=== PATIENT | female | born 2000 | race Caucasian/White ===

== ENCOUNTER 2022-11-11 17:03 | Emergency (ER) | payer MEDICAID ==
[2022-11-11] MEDS ORDERED: NS IV 1000 ML 1,000 ML IV STA (17:17)
[2022-11-11] MEDS ORDERED: ONDANSETRON 4 MG/2 ML (SDV) Z0FRAN IVP STA (17:17)
[2022-11-11] MEDS ORDERED: diphenhydrAMINE 50 MG/ML INJ (BENADRYL) IVP STA (17:17)
[2022-11-11] MEDS ORDERED: KETOROLAC 30 MG/ML VIAL IVP STA (17:17)
--- NOTE | 2022-11-11 17:20 | ED Headache ---
General Chief Complaint: Head/Cervical Problems Stated Complaint: VOMITTING Nursing Triage Note: PT REPORTS A HEADACHE FOR 8 DAYS AND THIS AM SHE STARTED VOMITING AND CANT KEEP ANYTHING DOWN. Source: patient History of Present Illness Date Seen by Provider: Nov 11, 2022 Time Seen by Provider: 17:10 Initial Comments 22-year-old female presenting with complaints of right-sided headache for the last 8 days. She denies any head trauma or injury. There has not been any fever, chills, light sensitivity, sore throat, chest pain, cough, abdominal pain. She states her last menstrual cycle was about 1 month ago. She does have some minor headaches in the past but they usually resolve on their own within a few hours. This is the first time she has had a severe headache on the right side lasting 8 days. Since around noon she has had nausea and vomiting associated with the headache. She has tried Tylenol and ibuprofen but has not taken anything since early this morning. She does not take any chronic medications and denies any chronic medical conditions. The headache is worse when she is vomiting otherwise nothing makes it better or worse Timing/Duration: increasing (over the last 8 days) Severity/Quality: severe Location: other (right side of head) Prior Headaches/Recent Trauma: no recent headache/trauma Modifying Factors: worse with movement Associated Symptoms: No confusion, No fatigue, No facial pain, No fever/chills, No flushing, No loss of consciousness; nausea/vomiting; No nasal congestion, No nasal drainage, No numbness in legs/feet, No rash, No seizures, No sinus infection, No stiff neck, No vision changes, No weakness Allergies and Home Medications Allergies Coded Allergies: No Known Drug Allergies (Unverified , 11/11/22) Patient Home Medication List Home Medication List Reviewed: Yes Review of Systems Review of Systems Constitutional: No chills, No dizziness, No fever Eyes: Denies Blurred Vision, Denies Photophobia, Denies Tunnel Vision, Denies Vision Changes Ears, Nose, Mouth, Throat: denies ear pain, denies ear discharge, denies nose pain, denies nose discharge, denies epistaxis Respiratory: No cough, No short of breath Cardiovascular: No chest pain Gastrointestinal: No abdominal pain, No diarrhea; nausea, vomiting Genitourinary: No dysuria Musculoskeletal: no symptoms reported Skin: No rash Psychiatric/Neurological: Headache (right sided for last 8 days and ) Past Rxosath-Vwibxl-Gmbssn Hx Patient Social History Tobacco Use?: No Use of E-Cig and/or Vaping dev: No Substance use?: No Alcohol Use?: No Pt feels they are or have been: No Past Medical History Surgeries: No Physical Exam Vital Signs Vital Signs - First Documented 11/11/22 17:07 Temp 36.2 Pulse 92 Resp 18 B/P (MAP) 113/82 (92) Pulse Ox 100 O2 Delivery Room Air Capillary Refill : Less Than 3 Seconds Height, Weight, BMI Height: '" Weight: lbs. oz. kg; BMI Method: General Appearance: WD/WN, no apparent distress HEENT: PERRL/EOMI, normal ENT inspection, TMs normal, pharynx normal; No photophobia; other (Negative botello sign, negative raccoon sign, no CSF otorrhea, no CSF rhinorrhea, no hemotympanum.) Neck: non-tender, full range of motion, supple, normal inspection Cardiovascular: normal peripheral pulses, regular rate, rhythm Respiratory: chest non-tender, lungs clear, normal breath sounds Gastrointestinal: normal bowel sounds, non tender, soft, no pulsatile mass Extremities: normal range of motion, non-tender, normal capillary refill Psychiatric: alert, oriented x 3 Crainal Nerves: normal hearing, normal speech, PERRL Coordination/Gait: normal gait Motor/Sensory: no motor deficit, no sensory deficit Skin: normal color, warm/dry Progress/Results/Core Measures Results/Orders Lab Results Laboratory Tests Test 11/11/22 17:24 Range/Units White Blood Count 10.6 4.3-11.0 10^3/uL Red Blood Count 3.93 3.80-5.11 10^6/uL Hemoglobin 11.5 11.5-16.0 g/dL Hematocrit 34 L 35-52 % Mean Corpuscular Volume 86 80-99 fL Mean Corpuscular Hemoglobin 29 25-34 pg Mean Corpuscular Hemoglobin Concent 34 32-36 g/dL Red Cell Distribution Width 12.8 10.0-14.5 % Platelet Count 232 130-400 10^3/uL Mean Platelet Volume 10.3 9.0-12.2 fL Immature Granulocyte % (Auto) 0 % Neutrophils (%) (Auto) 93 H 42-75 % Lymphocytes (%) (Auto) 5 L 12-44 % Monocytes (%) (Auto) 2 0-12 % Eosinophils (%) (Auto) 0 0-10 % Basophils (%) (Auto) 0 0-10 % Neutrophils # (Auto) 9.8 H 1.8-7.8 10^3/uL Lymphocytes # (Auto) 0.5 L 1.0-4.0 10^3/uL Monocytes # (Auto) 0.2 0.0-1.0 10^3/uL Eosinophils # (Auto) 0.0 0.0-0.3 10^3/uL Basophils # (Auto) 0.0 0.0-0.1 10^3/uL Immature Granulocyte # (Auto) 0.0 0.0-0.1 10^3/uL Neutrophils % (Manual) 93 % Lymphocytes % (Manual) 2 % Monocytes % (Manual) 1 % Eosinophils % (Manual) 0 % Basophils % (Manual) 2 % Band Neutrophils 2 % Prothrombin Time 13.6 12.2-14.7 SEC INR Comment 1.0 0.8-1.4 Activated Partial Thromboplast Time 24 24-35 SEC Sodium Level 137 135-145 MMOL/L Potassium Level 4.1 3.6-5.0 MMOL/L Chloride Level 105 98-107 MMOL/L Carbon Dioxide Level 22 21-32 MMOL/L Anion Gap 10 5-14 MMOL/L Blood Urea Nitrogen 13 7-18 MG/DL Creatinine 0.59 L 0.60-1.30 MG/DL Estimat Glomerular Filtration Rate 132 BUN/Creatinine Ratio 22 Glucose Level 140 H 70-105 MG/DL Calcium Level 9.2 8.5-10.1 MG/DL Corrected Calcium 8.9 8.5-10.1 MG/DL Total Bilirubin 0.5 0.1-1.0 MG/DL Aspartate Amino Transf (AST/SGOT) 15 5-34 U/L Alanine Aminotransferase (ALT/SGPT) 9 0-55 U/L Alkaline Phosphatase 63 40-136 U/L Total Protein 7.6 6.4-8.2 GM/DL Albumin 4.4 3.2-4.5 GM/DL Lipase 16 8-78 U/L My Orders Orders - PRINCESS FRANCO MD Comprehensive Metabolic Panel (11/11/22 17:17) Lipase (11/11/22 17:17) Ed Iv/Invasive Line Start (11/11/22 17:17) Cbc With Automated Diff (11/11/22 17:17) Urine Bedside (11/11/22 17:17) Ct Head/Cervical Spine Wo (11/11/22 17:17) Ns Iv 1000 Ml (Sodium Chloride 0.9%) (11/11/22 17:17) Ketorolac Injection (Toradol Injection) (11/11/22 17:17) Diphenhydramine Injection (Benadryl Inje (11/11/22 17:17) Ondansetron Injection (Zofran Injectio (11/11/22 17:17) Manual Differential (11/11/22 17:24) Partial Thromboplastin Time (11/11/22 17:56) Protime With Inr (11/11/22 17:56) Dexamethasone Injection (Decadron Inje (11/11/22 18:51) Vital Signs/I&O 11/11/22 17:07 Temp 36.2 Pulse 92 Resp 18 B/P (MAP) 113/82 (92) Pulse Ox 100 O2 Delivery Room Air Blood Pressure Mean: 92 Progress Progress Note #1: Progress Note Order basic labs including CBC and chemistry with coags. CT scan of the head to evaluate for severe right-sided headache with nausea and vomiting since she does not have a history of headaches or migraines. Order normal saline 1 L IV fluid bolus for hydration, Toradol 30 mg IV for pain, Zofran 4 mg IV for nausea and vomiting, Benadryl 25 mg IV for possible migraine headache. Progress Note #2: Time: 18:00 Progress Note Discussed with radiologist that the CT scan shows an area of intraparenchymal hemorrhage on the right occipital lobe. There is surrounding vasogenic edema. Concern for hemorrhagic mass. CBC and chemistry with coags are not showing any acute significant abnormality. Patient reports that her headache is down to a 2 or 3 out of 10 and the nausea is well controlled. She denies any new symptoms. Counseled that we would need to get her transferred to a hospital that would have neurosurgery and MRI to further evaluate and treat this area of bleeding. As [facility] is on diversion with no beds available the next closest hospitals with neurosurgery will be in [place]. Will contact [facility] about possible transfer. Progress Note #3: Time: 19:06 Progress Note TARA Mendez, from [facility] called and Dr. Mo is the accepting physician for the patient. She will call back with room assignment but given a ghost bed to be able to start facilitating transfer. Although she has been stable she is at risk of worsening condition or compromise with the intraparenchymal hemorrhage in Right occipital lobe so will have air ambulance transport her for sake of time and safety. Diagnostic Imaging Diagonstic Imaging: CT Plain Films/CT/US/NM/MRI: c-spine, head Comments NAME: FLORECITA [facility] REC#: [id number] PT STATUS: REG ER : 2000 PHYSICIAN: PRINCESS RFANCO MD ADMIT DATE: 11/11/22/ER FS Draft Date of Exam:11/11/22 CT HEAD/CERVICAL SPINE WO EXAMINATION: CT head and CT cervical spine without contrast. TECHNIQUE: Multiple contiguous axial images were obtained through the brain and cervical spine without the use of intravenous contrast. Sagittal and coronal reformations through the cervical spine were then performed. All CT scans use one or more of the following dose optimizing techniques: automated exposure control, MA and/or KvP adjustment based on patient size and exam type or iterative reconstruction. HISTORY: Headache and neck pain, nausea and vomiting. COMPARISON: None available. FINDINGS: There is an area of intraparenchymal hemorrhage in the right occipital lobe. There is surrounding vasogenic edema. The hematoma measures 2.6 x 1.6 cm. There is mass effect on the adjacent sulci but no midline shift. The ventricles are normal in size and configuration. Basilar cisterns are patent. There are no intra-axial or extra-axial fluid collection. There is no intracranial hemorrhage. The orbits are normal. Paranasal sinuses are normal. Mastoid air cells are clear. No soft tissue abnormality is seen. No osseus lesions or fractures are seen. The alignment of the cervical spine is normal. No fracture is seen. Vertebral body heights are normal. The craniocervical junction is normal. There is no degenerative disease in the cervical spine. There is no spinal canal stenosis. No soft tissue abnormality is seen in the neck. Limited views of the superior thorax are normal. IMPRESSION: 1. Intraparenchymal hemorrhage in the right occipital lobe measuring 2.6 x 1.6 cm. There is surrounding vasogenic edema and mass effect on the adjacent sulci but no midline shift. Differential includes a hemorrhagic mass. When patient condition permits MRI of the brain with and without contrast is recommended. 2. No cervical spine fracture. Critical findings called to Dr. Franco by Dr. Enriquez on 11/11/2022 at 6:00 PM. Dictated on workstation # [id number] Dict: 11/11/22 [id number] Trans: 11/11/22 [id number] [facility] [id number] Interpreted by: ROMEO ENRIQUEZ MD Electronically signed by: Reviewed: Discussed w/Radiologist (at 1800) Critical Care Note Critical Care Total Time (minutes) 45 minutes Progress 45 minutes of critical care time was spent with the patient. Time was excluding separately billable procedures. Time was spent obtaining history from patient and family, ordering labs and reviewing results, ordering interventions and reviewing response, reviewing radiology imaging, discussion with consultants, documentation in the chart. Patient was at risk of neurologic failure and compromised due to intraparenchymal hemorrhage. Departure Impression Primary Impression: Spontaneous intraparenchymal intracranial hemorrhage, acute Disposition: 02 XFER [facility] Condition: Critical Transfer Transfer Reason: Exceeds level of care (Requires neurosurgery and MRI) Departure-Patient Inst. Referrals: NO,LOCAL PHYSICIAN (PCP/Family) Primary Care Physician PRINCESS FRANCO MD Nov 11, 2022 17:20
[2022-11-11 17:29] LABS: BASOPHILS % (AUTO) 0 % (0-10); EOSINOPHILS % (AUTO) 0 % (0-10); HEMATOCRIT 34 % (35-52); HEMOGLOBIN 11.5 g/dL (11.5-16.0); LYMPHOCYTES # (AUTO) 0.5 10^3/uL (1.0-4.0); LYMPHOCYTES % (AUTO) 5 % (12-44); MEAN CORPUSCULAR HEMOGLOBIN 29 pg (25-34); MEAN CORPUSCULAR HGB CONC 34 g/dL (32-36); MEAN CORPUSCULAR VOLUME 86 fL (80-99); MEAN PLATELET VOLUME 10.3 fL (9.0-12.2); MONOCYTES # (AUTO) 0.2 10^3/uL (0.0-1.0); MONOCYTES % (AUTO) 2 % (0-12); NEUTROPHILS # (AUTO) 9.8 10^3/uL (1.8-7.8); NEUTROPHILS % (AUTO) 93 % (42-75); PLATELET COUNT 232 10^3/uL (130-400); WHITE BLOOD COUNT 10.6 10^3/uL (4.3-11.0)
[2022-11-11 18:01] LABS: BILIRUBIN,TOTAL 0.5 MG/DL (0.1-1.0); CALCIUM 9.2 MG/DL (8.5-10.1); CREATININE SERUM 0.59 MG/DL (0.60-1.30); POTASSIUM 4.1 MMOL/L (3.6-5.0)
[2022-11-11 18:02] LABS: ALBUMIN 4.4 GM/DL (3.2-4.5); TOTAL PROTEIN 7.6 GM/DL (6.4-8.2)
--- NOTE | 2022-11-11 18:10 | Diagnostic Imaging Report ---
EXAMINATION: CT head and CT cervical spine without contrast. TECHNIQUE: Multiple contiguous axial images were obtained through the brain and cervical spine without the use of intravenous contrast. Sagittal and coronal reformations through the cervical spine were then performed. All CT scans use one or more of the following dose optimizing techniques: automated exposure control, MA and/or KvP adjustment based on patient size and exam type or iterative reconstruction. HISTORY: Headache and neck pain, nausea and vomiting. COMPARISON: None available. FINDINGS: There is an area of intraparenchymal hemorrhage in the right occipital lobe. There is surrounding vasogenic edema. The hematoma measures 2.6 x 1.6 cm. There is mass effect on the adjacent sulci but no midline shift. The ventricles are normal in size and configuration. Basilar cisterns are patent. There are no intra-axial or extra-axial fluid collection. There is no intracranial hemorrhage. The orbits are normal. Paranasal sinuses are normal. Mastoid air cells are clear. No soft tissue abnormality is seen. No osseus lesions or fractures are seen. The alignment of the cervical spine is normal. No fracture is seen. Vertebral body heights are normal. The craniocervical junction is normal. There is no degenerative disease in the cervical spine. There is no spinal canal stenosis. No soft tissue abnormality is seen in the neck. Limited views of the superior thorax are normal. IMPRESSION: 1. Intraparenchymal hemorrhage in the right occipital lobe measuring 2.6 x 1.6 cm. There is surrounding vasogenic edema and mass effect on the adjacent sulci but no midline shift. Differential includes a hemorrhagic mass. When patient condition permits MRI of the brain with and without contrast is recommended. 2. No cervical spine fracture. Critical findings called to Dr. Cox by Dr. Enriquez on 11/11/2022 at 6:00 PM. Dictated by: Dictated on workstation # [id number]
[2022-11-11 18:14] LABS: PROTHROMBIN TIME PATIENT 13.6 SEC (12.2-14.7)
[2022-11-11 18:33] LABS: BAND NEUTROPHILS 2 %; BASOPHILS % (MANUAL) 2 %; EOSINOPHILS % (MANUAL) 0 %; LYMPHOCYTES % (MANUAL) 2 %; MONOCYTES % (MANUAL) 1 %; NEUTROPHILS % (MANUAL) 93 %
[2022-11-11 20:15] VITALS: BP 105/65
== END 2022-11-11 20:05 | disposition still patient (30) ==
LOC: EDUNIT# 17:03 → ER FS 17:04
DX: I61.8 Other nontraumatic intracerebral hemorrhage (principal)
CPT/HCPCS: 36415; 70450; 72125; 80053; 83690; 85007; 85027; 85610; 85730

== ENCOUNTER → 2023-02-05 | Outpatient (CLI) | payer MEDICAID ==
[~2023-02-05] MED LIST: GADOTERATE 0.5 MMOL/ML (CLARISCAN) 15 ML VIAL IV ONE
--- NOTE | 2023-02-05 10:49 | Diagnostic Imaging Report ---
PROCEDURE: MR imaging of the brain with and without contrast. TECHNIQUE: Multiplanar, multisequence MR imaging of the brain was performed with and without contrast. INDICATION: History of brain bleed. COMPARISON: CT of the head on 11/11/2022. FINDINGS: T2 hyperintense lesion within the right occipital lobe measuring 2.9 x 2.3 cm and demonstrating T1 hyperintensity intense signal along the periphery with isointense signal centrally. There is diffuse diffusion restriction within this lesion. No surrounding enhancement identified. When comparing this lesion to the prior head CT and appears stable in size. On the prior head CT appears that the hematoma had different regions of attenuation which is now more apparent. The surrounding edema appears decreased from the prior exam. No midline shift or mass effect. No apparent abnormal enhancement. The ventricles and cortical sulci are normal. The sella is normal. No marrow replacement process within the osseous structures. The paranasal sinuses and mastoids are clear. The globes and orbits are normal. The expected flow voids are preserved. IMPRESSION: Stable hematoma within the right occipital lobe. Would be difficult to exclude an underlying vascular lesion such as a cavernoma or other lesions. Recommend additional follow-up brain MRI with and without contrast in 3 months. Dictated by: Dictated on workstation # [id number]
== END ==
LOC: RAD 09:15
PROVIDERS: ATTEND Neurological Surgery
DX: S06.2XAA Diffuse traumatic brain injury with loss of consciousness status unknown, initial encounter (principal); C80.1 Malignant (primary) neoplasm, unspecified; C79.31 Secondary malignant neoplasm of brain
CPT/HCPCS: 70553

== ENCOUNTER → 2023-05-11 | Outpatient (CLI) | payer MEDICAID ==
--- NOTE | 2023-05-11 12:07 | Diagnostic Imaging Report ---
PROCEDURE: MR imaging of the brain with and without contrast. TECHNIQUE: Multiplanar, multisequence MR imaging of the brain was performed with and without contrast. INDICATION: Intraparenchymal hematoma follow-up. COMPARISON: MRI of the brain on 02/05/2023. FINDINGS: Intraparenchymal hematoma within the right occipital lobe measures 2.1 x 2.0 cm and appears homogenously T1 hyperintense and T2 hyperintense with a surrounding rim of T2 hypointensity. No associated enhancement identified. The sella is normal. No Chiari malformation. The included portions of the cervical spine are normal. The cortical sulci and ventricles are normal in size. No midline shift or mass effect. The paranasal sinuses and mastoids are clear. The globes and orbits are normal. IMPRESSION: Decreased size of the hematoma within the right occipital lobe. I recommend additional follow-up MRI of the brain with and without contrast in 6 months to document resolution and evaluate for any lesions. No apparent lesion or abnormal enhancement identified. Dictated by: Dictated on workstation # [id number]
== END ==
LOC: RAD 09:49
PROVIDERS: ATTEND Neurological Surgery
DX: D18.00 Hemangioma unspecified site (principal)
CPT/HCPCS: 70553